=== PATIENT | male | born 1970 | race Hispanic/Latino ===

== ENCOUNTER 2019-04-23 12:26 | Inpatient (IN) | payer SELFPAY ==
[~2019-04-23] VITALS: Ht 165.1 cm; Wt 75.0 kg
[2019-04-23] MEDS ORDERED: IOHEXOL-350 50ML VIAL IV ONE (12:53)
[2019-04-23 13:17] LABS: BASOPHILS % (AUTO) 0.4 % (0.0-5.0); HEMATOCRIT 47.3 % (42-54); LYMPHOCYTES % (AUTO) 5.2 % (21.0-51.0); MEAN CORPUSCULAR HEMOGLOBIN 29.2 pg (27.0-33.0); MEAN CORPUSCULAR HGB CONC 33.8 g/dL (32.0-36.0); MEAN CORPUSCULAR VOLUME 86.4 fL (79-99); MONOCYTES % (AUTO) 9.6 % (3.0-13.0); NEUTROPHILS % (AUTO) 84.8 % (40.0-77.0); PLATELET COUNT (AUTO) 217 K/uL (130-400); RED BLOOD CELL COUNT(AUTO) 5.47 MIL/uL (4.50-6.20); RED CELL DISTRIBUTION WIDTH 13.2 % (11.0-15.5)
[2019-04-23] MEDS ORDERED: CLINDAMYCIN 900 MG/D5% WATER 50 ML IV ONE (13:27)
[2019-04-23] MEDS ORDERED: IBUPROFEN 100 MG/5 ML SUSP UDCUP ONE (13:27)
[2019-04-23] MEDS ORDERED: ONDANSETRON HCL 4 MG/2 ML VIAL ONE (13:27)
[2019-04-23] MEDS ORDERED: MORPHINE SULFATE 4 MG/1ML SYG ONE ×2 (13:28→14:47)
[2019-04-23] MEDS ORDERED: SODIUM CHLORIDE 0.9% 1000ML 1,000 ML IV ONE (13:28)
[2019-04-23 13:31] LABS: CREATININE 0.9 mg/dL (0.5-1.5)
[2019-04-23 13:32] LABS: ALBUMIN 4.1 g/dL (3.5-5.0); BILIRUBIN,TOTAL 1.8 mg/dL (0.2-1.0); TOTAL PROTEIN, SERUM 8.2 g/dL (6.0-8.3)
[2019-04-23] MEDS ORDERED: ZOSYN 3.375GM+NS 50ML 50 ML IV ONE (14:20)
[2019-04-23 14:31] LABS: ERYTHROCYTE SEDIMENTATION RATE 25 MM/HR (0-15)
[2019-04-23] MEDS ORDERED: VANCOMYCIN 1GM+NS 250ML 250 ML IV ONE (14:56)
[2019-04-23 16:00] VITALS: BP 108/70
[2019-04-23 20:00] VITALS: BP 134/90
[2019-04-23] MEDS ORDERED: VANCOMYCIN PROTOCOL PER PHARMACY IV SCH (20:00)
[2019-04-23] MEDS: KETOROLAC TROMETHAMINE 15MG/ML IV PRN (20:32)
[2019-04-23] MEDS: SODIUM CHLORIDE 0.9% 1000ML 1,000 ML IV SCH (21:32)
[2019-04-23] MEDS: ZOSYN 3.375GM+NS 50ML 50 ML IV SCH (21:40)
[2019-04-24] VITALS: BP 110/75
[2019-04-24] MEDS ORDERED: VANCOMYCIN 1GM+NS 250ML 250 ML IV SCH (03:00)
[2019-04-24] MEDS: KETOROLAC TROMETHAMINE 15MG/ML IV PRN ×4 (03:48→23:11)
[2019-04-24 04:00] VITALS: BP 110/70
[2019-04-24 04:26] LABS: HEMATOCRIT 40.3 % (42-54); MEAN CORPUSCULAR HEMOGLOBIN 30.3 pg (27.0-33.0); MEAN CORPUSCULAR HGB CONC 34.8 g/dL (32.0-36.0); MEAN CORPUSCULAR VOLUME 86.9 fL (79-99); NUCLEATED RED BLOOD CELLS 0.1 % (0.0-0.19); PLATELET COUNT (AUTO) 171 K/uL (130-400); RED BLOOD CELL COUNT(AUTO) 4.63 MIL/uL (4.50-6.20); RED CELL DISTRIBUTION WIDTH 12.9 % (11.0-15.5); WHITE BLOOD COUNT (AUTO) 10.1 K/uL (4.8-10.8)
[2019-04-24 04:49] LABS: CREATININE 0.9 mg/dL (0.5-1.5); POTASSIUM 3.8 mmol/L (3.5-5.1)
[2019-04-24] MEDS: ZOSYN 3.375GM+NS 50ML 50 ML IV SCH ×3 (06:03→21:43)
[2019-04-24 07:53] VITALS: BP 124/73
[2019-04-24] MEDS ORDERED: VANCOMYCIN 1.5 GM in SODIUM CHLORIDE 0.9% 250 ML IV SCH (08:30)
[2019-04-24 11:52] VITALS: BP 121/70
[2019-04-24] MEDS: SODIUM CHLORIDE 0.9% 1000ML 1,000 ML IV SCH ×2 (12:10→21:43)
[2019-04-24 16:00] VITALS: BP 107/70
[2019-04-24 20:00] VITALS: BP 131/80
--- NOTE | 2019-04-24 21:26 | NUR ---
MD ROUNDS DR RANGEL HERE. SPOKE WITH PATIENT. UPDATED ON PLAN PER DR. GUERRERO. CONTINUE WITH ANTIBIOTICS AND WILL SEE TOMORROW. 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 PROVIDED ORDERS FOR PROTONIX AND ENTERED IN COMPUTER. SAID NO LABS FOR TOMORROW.
[2019-04-24] MEDS: VANCOMYCIN 1GM+NS 250ML 250 ML IV SCH (21:36)
[2019-04-25] VITALS: BP 125/63
[2019-04-25 04:00] VITALS: BP 135/87
[2019-04-25] MEDS: ZOSYN 3.375GM+NS 50ML 50 ML IV SCH ×2 (05:44→14:36)
[2019-04-25] MEDS: KETOROLAC TROMETHAMINE 15MG/ML IV PRN (05:50)
--- NOTE | 2019-04-25 07:12 | NUR ---
NOTE PATIENT REPORTS HE FELT SOMETHING IN HIS MOUTH AND NOTICED SOME DRAINAGE WITH BLOOD THAT HE SPITTED OUT. WILL NOTIFY OR PASS ON REPORT TO NOTIFY DR. GUERRERO IN ROUNDS OF OCCURRANCE.
[2019-04-25 07:28] VITALS: BP 126/83
--- NOTE | 2019-04-25 08:31 | NUR ---
CALL TO DR. GUERRERO T/C PLACED IF HE WAS ROUNDING TODAY, SAID YES AND ALSO ASKED IF WE CAN GET ANOTHER EENT, DR. BROWN, SAID YES. Addendum: 04/25/19 at 2319 by JOSEMANUEL POLLACK RN ADDENDUM ALSO INFORMED PT STARTED TO SPIT MOD. AMOUNT OF BROWNISH COLOR SPUTUM. NO FURTHER RECOMMENDATIONS
[2019-04-25] MEDS: VANCOMYCIN 1GM+NS 250ML 250 ML IV SCH (09:28)
[2019-04-25] MEDS: PANTOPRAZOLE SODIUM 40 MG TABLET.DR PO SCH (09:28)
[2019-04-25 11:21] VITALS: BP 115/77
--- NOTE | 2019-04-25 14:00 | NUR ---
CALL FROM DR. GUERRERO T/C FROM DR. GUERRERO, INFORMED HIM OF DR. 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
--- NOTE | 2019-04-25 14:30 | NUR ---
CALL TO DR. BROWN'S OFFICE T/C PLACED TO DR. BROWN'S OFFICE SAID DR. BROWN WILL BE NOT TO COME TODAY MAYBE TOMORROW.
--- NOTE | 2019-04-25 15:28 | NUR ---
INITIAL Met w patient for discharge planning- indp of ADLs, no DME, employed, drives; goes to [facility], discussed [facility] pkt and coupons- given. CM will follow Addendum: 04/25/19 at 1533 by BERT GILLIAM RN CM Amended: Links added.
[2019-04-25 16:14] VITALS: BP 114/68
[2019-04-25] MEDS: SODIUM CHLORIDE 0.9% 1000ML 1,000 ML IV SCH (18:06)
[2019-04-25 20:00] VITALS: BP 125/77
[2019-04-25] MEDS ORDERED: CLINDAMYCIN IV ONE (23:08)
[2019-04-25] MEDS ORDERED: D5W IV ONE (23:08)
[2019-04-25] MEDS: CLINDAMYCIN 300 MG/D5W 50 ML 50 ML IV SCH (23:24)
[2019-04-26] VITALS: BP 121/88
[2019-04-26 04:00] VITALS: BP 135/77
[2019-04-26 05:07] LABS: HEMATOCRIT 40.4 % (42-54); MEAN CORPUSCULAR HEMOGLOBIN 30.1 pg (27.0-33.0); MEAN CORPUSCULAR HGB CONC 34.7 g/dL (32.0-36.0); MEAN CORPUSCULAR VOLUME 86.8 fL (79-99); PLATELET COUNT (AUTO) 203 K/uL (130-400); RED BLOOD CELL COUNT(AUTO) 4.65 MIL/uL (4.50-6.20); WHITE BLOOD COUNT (AUTO) 5.4 K/uL (4.8-10.8)
[2019-04-26] MEDS: CLINDAMYCIN 300 MG/D5W 50 ML 50 ML IV SCH ×2 (05:34→17:37)
[2019-04-26 07:30] VITALS: BP 128/87
[2019-04-26] MEDS: PANTOPRAZOLE SODIUM 40 MG TABLET.DR PO SCH (08:16)
[2019-04-26] MEDS ORDERED: FAMOTIDINE 20MG TAB 20 MG TAB PO SCH (09:00)
[2019-04-26 11:00] VITALS: BP 126/71
--- NOTE | 2019-04-26 14:54 | NUR ---
PENDING ENT INPUT FOR POC AND DISPOSITION Addendum: 04/26/19 at 1455 by BERT GILLIAM RN CM Amended: Links added.
[2019-04-26 16:00] VITALS: BP 142/95
--- NOTE | 2019-04-26 17:45 | NUR ---
Patient dc in stable condition. Patient given discharge instructions, Instructed to come back to ER if fever, chills, n/v, sob, or chest pain, changes in mental status. Patient stated he will be going in as a walk in to see his primary care provider Dr. Inocencio Melgar in 3-5 days. Patient given prescription for Clindamycin. Instructed to take medication as prescribed and until finished. IV removed to Right Forearm 20g. Pt tolerated well. Pt verbalized understanding to all teaching. No questions voiced.
== END 2019-04-26 18:42 | disposition home or self-care (01) | DRG 872 ==
LOC: EDH 12:26 → EDHIP 12:27 → 4CH 15:16
PROVIDERS: ADMIT Internal Medicine; ATTEND Internal Medicine
PROC: 0C9P3ZZ Drainage of Tonsils, Percutaneous Approach (ICD-10-PCS; principal; 2019-04-25)
DX: A41.9 Sepsis, unspecified organism (principal); J36 Peritonsillar abscess; J06.9 Acute upper respiratory infection, unspecified
CPT/HCPCS: 36415; 70491; 80048; 80053; 80202; 85025; 85027; 85651; 87040; G0378; J1885; J2270; J2405; J2543; J3370; J3490; J7030; Q9967